=== PATIENT | female | born 1945 ===

== ENCOUNTER 2018-01-17 11:00 | Inpatient (IN) | payer OTHER ==
[~2018-01-17] VITALS: Ht 157.5 cm; Wt 70.3 kg
[2018-01-27] MEDS ORDERED: POLY119PG PO (12:03)
[2018-01-27] MEDS ORDERED: TYLENOL ARTHRI650 MG PO (12:03)
[2018-01-27] MEDS ORDERED: MIRALAX17 GM PO (12:36)
[2018-01-27] MEDS ORDERED: ULTRACET PO (12:36)
[2018-01-27] MEDS ORDERED: NEURONTIN300 MG PO (12:36)
== END 2018-01-27 13:20 | disposition home or self-care (01) | DRG 354 ==
LOC: O/R 01-24 10:33 → SURH 01-24 10:33 → SURG 01-24 11:00 → SURH 01-24 19:21
PROVIDERS: Surgery
PROC: 0WJF4ZZ Inspection of Abdominal Wall, Percutaneous Endoscopic Approach (ICD-10-PCS; 2018-01-24)
PROC: 0JX80ZZ Transfer Abdomen Subcutaneous Tissue and Fascia, Open Approach (ICD-10-PCS; 2018-01-24)
PROC: 0WUF0JZ Supplement Abdominal Wall with Synthetic Substitute, Open Approach (ICD-10-PCS; principal; 2018-01-24 12:45)
PROC: 3E0F7GC Introduction of Other Therapeutic Substance into Respiratory Tract, Via Natural or Artificial Opening (ICD-10-PCS; 2018-01-25)
DX: K43.0 Incisional hernia with obstruction, without gangrene (principal); K91.89 Other postprocedural complications and disorders of digestive system; K56.0 Paralytic ileus; J95.89 Other postprocedural complications and disorders of respiratory system, not elsewhere classified; J98.11 Atelectasis; K42.0 Umbilical hernia with obstruction, without gangrene